=== PATIENT | male | born 1970 | race African-American/Black ===

== ENCOUNTER 2018-12-03 00:15 | Emergency (ER) | payer SELFPAY ==
[~2018-12-03] VITALS: Ht 182.9 cm; Wt 83.9 kg
--- NOTE | 2018-12-03 00:16 | NUR ---
pt bibra. c/o "alcohol intoxication" -sob -n/v -acute distress. -dizziness
--- NOTE | 2018-12-03 02:01 | NUR ---
Patient is resting comfortably in bed with eyes closed. Easily aroused. VSS
--- NOTE | 2018-12-03 04:03 | NUR ---
Patient is resting comfortably in bed with eyes closed. Easily aroused. VSS
[2018-12-03 05:48] VITALS: BP 136/88
--- NOTE | 2018-12-03 05:48 | NUR ---
PATIENT REFUSING HOMELESS DISCHARGE PACKET AND STATING "IM NOT WAITING FOR A [employer]" LEFT WITHOUT PACKET
== END 2018-12-03 05:49 | disposition home or self-care (01) ==
LOC: ER 00:17
DX: F10.129 Alcohol abuse with intoxication, unspecified (principal); Y90.9 Presence of alcohol in blood, level not specified
CPT/HCPCS: 82962-TC